=== PATIENT | female | born 1935 | race Caucasian/White ===

== ENCOUNTER 2021-02-06 07:49 | Day surgery (SDC) | payer MEDICARE ==
[2021-02-06] MEDS ORDERED: Dexamethasone 4 MG/ML 5 ML MDV IVPUSH ONE (07:50)
[2021-02-06] MEDS ORDERED: Lactated Ringers 1,000 ML IV ONE (07:50)
[2021-02-06] MEDS ORDERED: Ketorolac 30 MG/ML SDV IVPUSH ONE (07:50)
[2021-02-06] MEDS ORDERED: hydrALAZINE 20 MG/ML SDV IVPUSH ONE (07:50)
[2021-02-06] MEDS ORDERED: Glycopyrrolate 0.2 MG/ML 5 ML MDV IV ONE (07:50)
[2021-02-06] MEDS ORDERED: Succinylcholine 200 MG/10 ML MDV IV ONE (07:50)
[2021-02-06] MEDS ORDERED: Rocuronium 50 MG/5 ML Vial IVPUSH ONE (07:50)
[2021-02-06] MEDS ORDERED: Propofol 200 MG/20 ML SDV IV ONE (07:50)
[2021-02-06] MEDS ORDERED: diphenhydrAMINE 50 MG/ML SDV IVPUSH ONE (07:50)
[2021-02-06] MEDS ORDERED: Neostigmine Methylsulfate 10 MG/10 ML MDV IVPUSH ONE (07:50)
[2021-02-06] MEDS ORDERED: Ondansetron 4 MG/2 ML SDV IVPUSH ONE (07:50)
[2021-02-06] MEDS ORDERED: Lactated Ringers 1,000 ML IV SCH (08:00)
[2021-02-06] MEDS ORDERED: Sodium Chloride 0.9% 10 ML Syringe FLUSH PRN (08:00)
--- NOTE | 2021-02-06 10:11 | PCM.HPR ---
H & P Addendum review - H & P Addendum Review Date of Original H & P: 01/23/21 Date Reviewed: 02/06/21 Time Reviewed: 10:00 Patient was Examined: No Changes
[2021-02-06] MEDS ORDERED: Bupivacaine 0.25% 30 ML SDV INJECT ONE (10:28)
--- NOTE | 2021-02-06 11:29 | PCM.OPNOTE ---
- General Post-Op/Procedure Note Date of Surgery/Procedure: 02/06/21 Operative Procedure(s): Lpa marlne with Adhesiolysis Findings: Cholecystitis with adhesions, gall stones Pre Op Diagnosis: Symptomatic Cholelithiasis Post-Op Diagnosis: Same Anesthesia Technique: General ET Tube Primary Surgeon: Agustin Lomeli Anesthesia Provider: [place] Pathology: Gallbladder EBL in mLs: 10 Complications: None Condition: Good
--- NOTE | 2021-02-06 12:01 | OR ---
DATE OF OPERATION: 02/06/2021 SURGEON: Agustin Lomeli MD PREOPERATIVE DIAGNOSIS: Symptomatic cholelithiasis. 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 PROCEDURE: Laparoscopic cholecystectomy with adhesiolysis. ANESTHESIA: General. PROCEDURE IN DETAIL: The patient was brought to the operating room where general endotracheal anesthesia was administered. The abdomen was prepped and draped sterilely. A time-out was performed. An infraumbilical incision was made and extended into the peritoneal cavity without difficulty. The Adarsh cannulator was introduced and pneumoperitoneum obtained. 5 mm ports were placed in the epigastric and 2 in the right lateral abdomen. The patient was placed in reverse Trendelenburg position and rotated to the left. Orogastric tube was placed for decompression of the stomach. The gallbladder was grasped and had fairly dense omental adhesions to its entire undersurface. Many of these were vascular. These were either taken down with cautery and the ones with vessels were clipped with a hemoclip. This allowed better traction on the gallbladder, and I was able to free up all the peritoneum and omentum off the gallbladder down to its base. Cystic artery was clearly dissected free and had a branch running on the bottom side of the gallbladder and another one alongside the liver bed on the left. The main trunk was doubly clipped and each branch clipped and transected. This allowed me to further dissect out the cystic duct and was clearly identified entering the base of the gallbladder and extending to the common bile duct. This was milked back into the gallbladder, then doubly clipped proximally and once distally, and then transected. The gallbladder was removed from the bed of the liver without difficulty. The gallbladder was then brought out through the umbilical incision site. Right upper quadrant was inspected and irrigated, and return was clear and hemostasis assured. Ports were removed under direct vision and remained hemostatic. Umbilical fascia was closed with [id number] 0 Vicryl. Skin was closed with 4-0 Vicryl subcuticular sutures. Benzoin and Steri-Strips were placed, and Band-Aids applied. The patient tolerated the procedure well. Estimated blood loss 10 mL. She returned to postanesthesia in stable condition. General exploration of the remaining abdomen revealed the liver, stomach, visible bowel, omentum, and peritoneal surfaces to appear normal. /[id number] SACHIN/JIM
== END 2021-02-06 13:48 | disposition home or self-care (01) ==
LOC: FB.SDS 07:49
PROVIDERS: ATTEND Surgery
DX: K80.10 Calculus of gallbladder with chronic cholecystitis without obstruction (principal); K66.0 Peritoneal adhesions (postprocedural) (postinfection); I50.9 Heart failure, unspecified; Z79.899 Other long term (current) drug therapy; Z79.82 Long term (current) use of aspirin; Z87.891 Personal history of nicotine dependence
CPT/HCPCS: 00790; 47562; 88304; J0131; J0330; J0360; J1100; J1200; J1885; J2405; J2704; J2710; J3490; J7120